=== PATIENT | male | born 1965 | race Caucasian/White ===

== ENCOUNTER 2025-03-16 18:08 | Emergency (ER) | payer OTHER ==
--- NOTE | 2025-03-16 18:24 | ERPHSYRPT ---
- History of Present Illness Source: patient Timing/Duration: week(s) Severity: mild <BENTON HERMAN - Last Filed: 03/16/25 18:35> <DAFNE ARIAS - Last Filed: 03/16/25 19:40> - History of Present Illness Time Seen by Provider: 03/16/25 18:20 Physician History: Patient comes to the emergency room due to right lower leg pain going on for about 2 to 3 weeks denies any trauma was seen by primary care provider for this and was advised to come to the emergency room for further evaluation management patient was told by primary care provider that there might be a DVT and to come to the emergency room to get that evaluated. Patient has no previous history of clotting issues does have history of hypertension but does not take medications stop taking medication for couple years now he denies any chest pain shortness of breath. (BENTON HERMAN) Allergies/Adverse Reactions: No Known Drug Allergies Allergy (Unverified 03/16/25 18:26) Home Medications: No Reportable Medications [No Reported Medications] 03/16/25 [History] - Review of Systems Constitutional: No Fever, No Chills Eyes: No Symptoms Respiratory: No Cough, No Dyspnea Cardiac: No Chest Pain, No Edema, No Syncope Musculoskeletal: No Injury, No Joint Redness, No Joint Pain, No Joint Swelling Skin: No Rash Neurological: No Dizziness, No Focal Weakness, No Sensory Changes <BENTON HERMAN - Last Filed: 03/16/25 18:35> - Physical Exam General Appearance: no apparent distress, alert Eye Exam: PERRL/EOMI, eyes nml inspection Respiratory Exam: normal breath sounds, lungs clear, No respiratory distress Cardiovascular Exam: regular rate/rhythm, normal heart sounds, normal peripheral pulses Gastrointestinal/Abdomen Exam: soft Extremity Exam: normal range of motion, tenderness Neurologic Exam: alert, oriented x 3, cooperative Skin Exam: normal color SpO2 Interpretation: normal SpO2: 98 O2 Delivery: Room Air <BENTON HERMAN - Last Filed: 03/16/25 18:35> - Nursing Vital Signs Nursing Vital Signs: Initial Vital Signs Temperature 98 F 03/16/25 18:13 Pulse Rate 87 03/16/25 18:13 Respiratory Rate 16 03/16/25 18:13 Blood Pressure 181/113 03/16/25 18:13 O2 Sat by Pulse Oximetry 99 03/16/25 18:13 Pain Scale Pain Intensity 3 - Course Nursing assessment & vital signs reviewed: Yes <DAFNE ARIAS - Last Filed: 03/16/25 19:40> Ordered Tests: Active Orders 24 hr Category Date Time Status VENOUS UNILAT/LIMITED EXTREMIT [US] Stat Exams 03/16/25 18:19 Ordered BMP Stat Lab 03/16/25 18:25 Completed CBC W DIFF Stat Lab 03/16/25 18:25 Completed PTT Stat Lab 03/16/25 18:25 Completed Lab/Rad Data: Laboratory Result Diagrams 03/16/25 18:25 03/16/25 18:25 Laboratory Results 03/16/25 03/16/25 03/16/25 Range/Units 18:25 18:25 18:25 WBC 9.7 H (4.23-9.07) x10^3/uL RBC 4.63 (4.63-6.08) x10^6/uL Hgb 15.6 (13.7-17.5) g/dL Hct 45.4 (40.1-51.0) % MCV 98.1 H (79.0-92.2) fL MCH 33.7 H (25.7-32.2) pg MCHC 34.4 (32.3-36.5) g/dL RDW 12.2 (11.6-14.4) % Plt Count 217 (163-337) x10^3/uL MPV 9.5 (9.4-12.4) fL Gran % 73.2 H (34.0-67.9) % Immature Gran % (Auto) 0.4 (0.001-0.429) % Nucleat RBC Rel Count 0.0 (0.00-0.2) % Eos # (Auto) 0.44 (0.04-0.54) x10^3/uL Immature Gran # (Auto) 0.04 H (0.001-0.031) x10^3u/L Absolute Lymphs (auto) 1.47 (1.32-3.57) x10^3/uL Absolute Monos (auto) 0.61 (0.30-0.82) x10^3/uL Absolute Nucleated RBC 0.00 (0.00-0.012) x10^3u/L Lymphocytes % 15.2 L (21.8-53.1) % Monocytes % 6.3 (5.3-12.2) % Eosinophils % 4.5 (0.8-7.0) % Basophils % 0.4 (0.2-1.2) % Absolute Granulocytes 7.08 H (1.78-5.38) x10^3/uL Basophils # 0.04 (0.01-0.08) x10^3/uL APTT 24.6 L (25.1-36.5) SECONDS Sodium 137 (135-145) mmol/L Potassium 3.9 (3.5-5.1) mmol/L Chloride 101 (98-107) mmol/L Carbon Dioxide 26 (22-30) mmol/L Anion Gap 14.1 (5-15) MEQ/L BUN 13 (9-20) mg/dL Creatinine 1.06 (0.66-1.25) mg/dL Estimated GFR 81.9 ML/MIN Glucose 107 H (74-106) mg/dL Calcium 9.0 (8.4-10.2) mg/dL <BENTON HERMAN - Last Filed: 03/16/25 18:35> - Progress Progress: unchanged Counseled pt/family regarding: diagnosis, need for follow-up <DAFNE ARIAS - Last Filed: 03/16/25 19:40> - Progress Progress Note: 03/16/25 18:23 I have ordered labs on the patient along with a venous Doppler. I have low suspicion for DVT but because the patient was sent here by primary care for an ultrasound I will be getting that done here today. Patient's Homans' sign was negative. At this time I believe patient's symptoms might be more muscular related but will reevaluate the patient once ultrasound returns to determine final disposition and diagnosis of the patient. The patient will be handed off to the nighttime physician as I will not be here when the results of the ultrasound are given to us. (BENTON HERMAN) Patient endorsed to Dr. Arias at approximately [address] Arias advised to follow- up on pending ultrasound right lower extremity. Ultrasound completed. Per strategic debriefing specialist this study was negative for DVT. Patient's pain is mostly at the anterior tibialis muscle proximally. Patient stated that he tends to rest his leg in a particular manner while working that he believes may be exacerbating his pain. Patient advised to not allow his leg to rest as he has been as this may be contributing to his symptomology. No indication for further workup. Patient resting comfortably. No active pain. The involved lower extremities neurovasc intact distally. Compartments are soft cap refill less than 2 seconds. Patient voices no other complaints or concerns at this time. Portions of this note were created with voice recognition technology. There may be grammatical, spelling, punctuation or sound alike errors History obtained from patient and significant other at bedside. Differential diagnosis includes DVT, muscle contusion, muscle strain Complexity of problems addressed is moderate acute complicated. No critical care time. Complexity of data reviewed and analyzed is moderate. Test ordered chest reviewed results analyzed and correlated clinically with history and physical exam. Risk of complication at risk of morbidity/mortality of patient management is low. Vital stable. Time spent to discharge patient approximately 10 minutes. Plan of care established for shared decision making. No social determinants of health present to impede follow-up. Portions of this note were created with voice recognition technology. There may be grammatical, spelling, punctuation or sound alike errors 03/16/25 19:36 (DAFNE ARIAS) <BENTON HERMAN - Last Filed: 03/16/25 18:35> - Departure Departure Disposition: Home Critical Care Time: No <DAFNE ARIAS - Last Filed: 03/16/25 19:40> - Departure Clinical Impression: Leg pain Condition: Stable Referrals: DOCTOR,NO FAMILY [Primary Care Provider, UNKNOWN] - Follow up/PCP as directed SAEID SNOW MD [ACTIVE STAFF, FAMILY PRACTICE] - Follow up/PCP as directed Additional Instructions: Follow-up with your primary care doctor within 48 hours for a reevaluation. Discharge/Care Plan ASA MCDOWELL was seen on 03/16/25 in the Emergency Room. The patient was counseled regarding Diagnosis,Lab results, Imaging studies, need for follow up and when to return to the Emergency Room. Prescriptions given: Discharge Note I have spoken with the patient and/or caregivers. I have explained the patient's condition, diagnosis and treatment plan based on the information available to me at this time. I have answered the patient's and/or caregiver's questions and addressed any concerns. The patient and/or caregivers have as good understanding of the patient's diagnosis, condition and treatment plan as can be expected at this point. The vital signs have been stable. The patient's condition is stable and appropriate for discharge from the emergency department. The patient will pursue further outpatient evaluation with the primary care physician or other designated or consulting physician as outlined in the discharge instructions. The patient and/or caregivers are agreeable to this plan of care and follow-up instructions have been explained in detail. The patient and/or caregivers have received these instruction. The patient/and or caregivers are aware that any significant change in condition or worsening of symptoms should prompt an immediate return to this or the closest emergency department or call 911.
[2025-03-16 18:27] VITALS: TEMP 98
[2025-03-16 18:31] LABS: BASOPHIL % 0.4 % (0.2-1.2); Basophil (Absolute #) 0.04 x10^3/uL (0.01-0.08); Eosinophil (Absolute #) 0.44 x10^3/uL (0.04-0.54); Hematocrit 45.4 % (40.1-51.0); Hemoglobin 15.6 g/dL (13.7-17.5); IMMATURE GRAN # 0.04 x10^3u/L (0.001-0.031); IMMATURE GRAN % 0.4 % (0.001-0.429); Lymphocyte (Absolute #) 1.47 x10^3/uL (1.32-3.57); Mean Corpuscular Hemoglobin 33.7 pg (25.7-32.2); Mean Corpuscular Hgb Concent. 34.4 g/dL (32.3-36.5); Monocyte (Absolute #) 0.61 x10^3/uL (0.30-0.82); NUCLEATED RBC # 0.00 x10^3u/L (0.00-0.012); NUCLEATED RBC % 0.0 % (0.00-0.2); Platelet Count 217 x10^3/uL (163-337); Red Blood Count 4.63 x10^6/uL (4.63-6.08); White Blood Count 9.7 x10^3/uL (4.23-9.07)
[2025-03-16 18:44] LABS: Calcium 9.0 mg/dL (8.4-10.2); Carbon Dioxide 26.0 mmol/L (22-30); Creatinine 1 1.06 mg/dL (0.66-1.25); EST GLOMERULAR FILTRATION RATE 81.9 ML/MIN; Glucose 107.0 mg/dL (74-106); Potassium 3.9 mmol/L (3.5-5.1)
[2025-03-16 19:49] VITALS: BP 140/88; PULSE 91; RESP 19; O2SAT 100
--- NOTE | 2025-03-17 08:43 | XRAY ---
Indication: Pain. Two-dimensional sonogram and color Doppler imaging major venous vessels right leg performed. Comparison: None No thrombus seen in the examined deep venous vessels right leg including greater saphenous vein. Veins demonstrate normal compressibility. Venous waveforms are normal with and without augmentation. Targeted ultrasound lateral knee, area of concern is negative for focal solid/cystic mass or abnormal fluid collection. Impression: Right leg negative for DVT. Comment: Preliminary report was given.
== END 2025-03-16 19:51 | disposition home or self-care (01) ==
LOC: ED 18:08
DX: M79.661 Pain in right lower leg (principal)